=== PATIENT | male | born 1985 | race Caucasian/White ===

== ENCOUNTER 2022-10-07 10:59 | Emergency (ER) | payer MEDICAID ==
[~2022-10-07] VITALS: Ht 175.3 cm; Wt 90.7 kg
--- NOTE | 2022-10-07 11:10 | NUR ---
Patient paulin[place] from home, called friend saying he is holding a knife and will kill self. Admits to heavy drinking x 8 days per ems. +nausea vomiting, zofran 4 mg IVP given [employer]. On room air, breathing evenly and unlabored. Kept comfortable, connected to the cardiac monitoring. Sitter at bedside. Will continue to monitor accordingly.
[2022-10-07] MEDS ORDERED: LORAZEPAM 1 MG TABLET ONE (11:18)
[2022-10-07] MEDS ORDERED: LORAZEPAM 1 MG TABLET PO ONE (11:30)
[2022-10-07 12:17] LABS: CALCIUM, SERUM 8.6 mg/dL (8.5-10.1); CARBON DIOXIDE 20 mmol/L (21-32); CHLORIDE 94 mmol/L (98-107); CREATININE 0.6 mg/dL (0.6-1.3); GLUCOSE 163 mg/dL (74-106); SODIUM SERUM 133 mmol/L (136-145); UREA NITROGEN, BLOOD 8 mg/dL (7-18)
[2022-10-07 12:28] LABS: ALANINE AMINOTRANSFERASE 192 U/L (12-78); ALBUMIN 3.1 g/dL (3.4-5.0); ALCOHOL, BLOOD 69 mg/dL (0-0); ALKALINE PHOSPHATASE 335 U/L (46-116); ASPARTATE AMINOTRANSFERASE 414 U/L (15-37); BILIRUBIN,DIRECT 2.5 mg/dL (0.0-0.2); TOTAL PROTEIN, SERUM 7.1 g/dL (6.4-8.2)
--- NOTE | 2022-10-07 12:28 | NUR ---
urine collected and sent to lab.
[2022-10-07 12:52] LABS: ACETAMINOPHEN < 10 ug/ml (10-30)
[2022-10-07 13:05] LABS: BILIRUBIN,URINE 2+ (NEGATIVE); COLOR,URINE AMBER (YELLOW); LEUKOCYTE ESTERASE ,URINE NEGATIVE (NEGATIVE); NITRITE, URINE NEGATIVE (NEGATIVE); PH,URINE 6.5 (5.0-8.0); PROTEIN,URINE 2+ mg/dl (NEGATIVE); UGLUCOSE NEGATIVE (NEGATIVE)
[2022-10-07 13:09] LABS: BASOPHILS % (AUTO) 0.9 % (0.0-2.0); HEMATOCRIT 42 % (39-51); HEMOGLOBIN 14.1 g/dL (13.5-17.5); LYMPHOCYTES # (AUTO) 0.7 K/uL (0.8-4.8); LYMPHOCYTES % (AUTO) 14.9 % (20.0-44.0); MEAN CORPUSCULAR HGB CONC 34 g/dl (31.0-36.0); MEAN CORPUSCULAR VOLUME 98 fL (80-96); MONOCYTES # (AUTO) 0.4 K/uL (0.1-1.30); MONOCYTES % (AUTO) 8.2 % (2.0-12.0); NEUTROPHILS # (AUTO) 3.4 K/uL (1.8-8.9); PLATELET COUNT (AUTO) 96 K/uL (150-450); RED BLOOD CELL COUNT(AUTO) 4.23 MIL/uL (4.5-6.0); WHITE BLOOD COUNT (AUTO) 4.5 K/uL (4.3-11.0)
[2022-10-07 13:23] LABS: BACTERIA,URINE None seen /HPF (None Seen); MUCUS,URINE Many /LPF (None Seen); SQUAMOUS EPITHELIAL CELL,UR Few /HPF (None Seen); WBC,URINE 0-2 /HPF (0-3)
--- NOTE | 2022-10-07 14:29 | NUR ---
covid swab collected and sent to lab.
--- NOTE | 2022-10-07 15:34 | NUR ---
KELLEN faxed clinicals to [employer] TEL:[phone] fax:[phone] for for voluntary psychiatric treatment at [facility] [[facility] [place] [address] FAX:[phone]].
[2022-10-07] MEDS ORDERED: ONDANSETRON HCL/PF 4 MG/2 ML VIAL IV ONE (16:00)
[2022-10-07] MEDS ORDERED: ONDANSETRON HCL/PF 4 MG/2 ML VIAL ONE (16:00)
[2022-10-07] MEDS ORDERED: NICOTINE PATCH (14MG) 14 MG PATCH.TD24 TD SCH (19:00)
[2022-10-07 20:35] LABS: BAND % (MANUAL) 1 % (0.0-5.0); LYMPHOCYTES % (MANUAL) 15 % (16-48); MONOCYTES % (MANUAL) 4 % (0-11.0); NEUTROPHILS % (MANUAL) 80 (42-76)
[2022-10-07] MEDS ORDERED: CHLORDIAZEPOXIDE HCL 25 MG CAPSULE PO ONE (22:00)
[2022-10-07] MEDS ORDERED: ACETAMINOPHEN ES 500 MG TABLET PO ONE (22:00)
[2022-10-07] MEDS ORDERED: CHLORDIAZEPOXIDE HCL 25 MG CAPSULE ONE (22:05)
[2022-10-07] MEDS ORDERED: ACETAMINOPHEN ES 500 MG TABLET ONE (22:05)
--- NOTE | 2022-10-08 01:09 | NUR ---
CLINICALS REFAXED TO [facility]. PRIOR CLINICAL SENT HAS NO INSURANCE INFORMATION
[2022-10-08] MEDS ORDERED: IBUPROFEN 600 MG TABLET ONE (03:40)
[2022-10-08] MEDS ORDERED: IBUPROFEN 600 MG TABLET PO ONE (04:00)
[2022-10-08] MEDS ORDERED: OMEPRAZOLE 20 MG CAPSULE.DR PO SCH (07:30)
--- NOTE | 2022-10-08 08:49 | NUR ---
PT ACCEPTED AT [facility] UNDER THE CARE OF DR. ADAIR. GIVE REPORT AT .
--- NOTE | 2022-10-08 08:53 | NUR ---
[facility] CALLED FOR TRANSPORT, ETA 45-60 MIN PER JOLYNN.
[2022-10-08 10:30] VITALS: BP 136/98
--- NOTE | 2022-10-08 10:38 | NUR ---
IV removed. Catheter intact and site benign. Pressure and 4x4 applied to site. No bleeding noted.
--- NOTE | 2022-10-08 10:39 | NUR ---
PICKED UP BY TRANSPORT IN STABLE CONDITION
== END 2022-10-08 10:59 ==
LOC: ER 11:02
DX: R45.851 Suicidal ideations (principal); F10.239 Alcohol dependence with withdrawal, unspecified; F32.A Depression, unspecified; Z63.9 Problem related to primary support group, unspecified; Z20.822 Contact with and (suspected) exposure to COVID-19
CPT/HCPCS: 99285; 96374; 85025; 80048; 80076; 85007; 81001; 36415; 87426; 80143; 80320; 80307; J2405; C9803; G0480